=== PATIENT | male | born 1980 | race Two or more races ===

== ENCOUNTER 2019-05-19 01:12 | Emergency (ER) | payer OTHER ==
[~2019-05-19] VITALS: Ht 170.2 cm; Wt 119.3 kg
--- NOTE | 2019-05-19 01:50 | NUR ---
PT BIBS. C/O "L L Q ABD PAIN RADIATING TO LEFT TESTICLE, +N/V. -HEMATURIA. -CONSTIPATION. -DYSURIA" AOX4. VSS. AMBULATORY. PT ON ON MONITOR IN BED 10. WILL CONTINUE TO MONITOR.
[2019-05-19] MEDS ORDERED: MORPHINE SULFATE INJ 2 MG/ML DISP.SYRIN IV ONE (02:00)
[2019-05-19] MEDS ORDERED: IV NS 0.9% 1,000 ML BAG IV ONE (02:00)
[2019-05-19] MEDS ORDERED: ONDANSETRON HCL/PF 4 MG/2 ML VIAL IVP ONE (02:00)
--- NOTE | 2019-05-19 02:00 | NUR ---
ADDENDUM: Intravenous End Time Documentation: Normal saline 1 liter (IV-WO) : start time: 0200 ; end time: 0300: IV site: RAC # 18 Port # 1 Rocephin 1 gram IVPB: start time: 0406 ; end time: 0436 IV site: RAC # 18 Port # 1
[2019-05-19] MEDS ORDERED: ONDANSETRON HCL/PF 4 MG/2 ML VIAL ONE (02:04)
--- NOTE | 2019-05-19 02:04 | NUR ---
BLOOD DRAWN AND GIVEN TO PHLEB
[2019-05-19] MEDS ORDERED: MORPHINE SULFATE INJ 4 MG/ML DISP.SYRIN ONE (02:05)
--- NOTE | 2019-05-19 02:10 | NUR ---
PT TAKEN TO RADIOLOGY VIA [facility]
--- NOTE | 2019-05-19 02:17 | NUR ---
[place] [facility] [place]
[2019-05-19 02:25] LABS: BASOPHILS % (AUTO) 0.4 % (0.0-2.0); EOSINOPHILS % (AUTO) 1.6 % (0.0-6.0); HEMATOCRIT 43 % (39-51); HEMOGLOBIN 14.2 g/dL (13.5-17.5); LYMPHOCYTES # (AUTO) 2.5 /CMM (0.8-4.8); MEAN CORPUSCULAR HGB CONC 33 g/dl (31.0-36.0); MEAN CORPUSCULAR VOLUME 87 fL (80-96); MONOCYTES # (AUTO) 0.5 /CMM (0.1-1.30); MONOCYTES % (AUTO) 5.7 % (2.0-12.0); NEUTROPHILS # (AUTO) 6.1 /CMM (1.8-8.9); NEUTROPHILS % (AUTO) 65.3 % (43.0-81.0); PLATELET COUNT (AUTO) 306 /CMM (150-450); RED BLOOD CELL COUNT(AUTO) 4.98 MIL/uL (4.5-6.0); WHITE BLOOD COUNT (AUTO) 9.3 K/uL (4.3-11.0)
[2019-05-19 02:25] LABS: APPEARANCE,URINE CLEAR (CLEAR); BILIRUBIN,URINE NEGATIVE (NEGATIVE); BLOOD, URINE NEGATIVE Ery/uL (NEGATIVE); COLOR,URINE YELLOW (YELLOW); KETONES,URINE TRACE (NEGATIVE); LEUKOCYTE ESTERASE ,URINE NEGATIVE (NEGATIVE); NITRITE, URINE NEGATIVE (NEGATIVE); PROTEIN,URINE 30 mg/dl (NEGATIVE); UGLUCOSE NEGATIVE (NEGATIVE); UROBILINOGEN,URINE 0.2 EU/dL (0.2)
[2019-05-19] MEDS ORDERED: KETOROLAC TROMETHAMINE INJ 30 MG/ML VIAL ONE (02:29)
[2019-05-19] MEDS ORDERED: KETOROLAC TROMETHAMINE INJ 30 MG/ML VIAL IV ONE (02:30)
[2019-05-19 02:39] LABS: BACTERIA,URINE Few /HPF (None Seen); SQUAMOUS EPITHELIAL CELL,UR Rare /HPF (None Seen); WBC,URINE 21-50 /HPF (0-3)
[2019-05-19 02:40] LABS: CALCIUM, SERUM 9.3 mg/dL (8.5-10.1); CREATININE 1.1 mg/dL (0.6-1.3); POTASSIUM 3.6 mmol/L (3.5-5.1)
[2019-05-19] MEDS ORDERED: HYDROMORPHONE 1 MG/1 ML DISP.SYRIN ONE (02:47)
[2019-05-19] MEDS ORDERED: HYDROMORPHONE 1 MG/1 ML DISP.SYRIN IV ONE (03:00)
[2019-05-19 03:46] VITALS: BP 149/96
--- NOTE | 2019-05-19 03:46 | NUR ---
Patient is resting comfortably in bed with eyes closed. Easily aroused. VSS.
[2019-05-19] MEDS ORDERED: CEFTRIAXONE 1 G in IV D5W 50 ML IV ONE (04:00)
[2019-05-19] MEDS ORDERED: CEFTRIAXONE 1GM BAG (ER ONLY) 50 ML IV ONE (04:06)
--- NOTE | 2019-05-19 05:06 | NUR ---
IV removed. Catheter intact and site benign. Pressure and 4x4 applied to site. No bleeding noted.Patient discharged to home in stable condition. Written and verbal after care instructions given. Patient verbalizes understanding of instruction.
== END 2019-05-19 05:07 | disposition home or self-care (01) ==
LOC: ER 01:12
DX: N20.0 Calculus of kidney (principal); R11.2 Nausea with vomiting, unspecified
CPT/HCPCS: 36415; 74176; 80048; 81001; 85025; 87086; 96361; 96365; 96375; 99284; J0696; J1170; J1885; J2270; J2405; J7030; J7060; 81000-TC

== ENCOUNTER 2019-09-23 03:04 | Emergency (ER) | payer OTHER ==
[~2019-09-23] VITALS: Ht 170.2 cm; Wt 113.4 kg
--- NOTE | 2019-09-23 03:16 | NUR ---
PT AAOX4. AMBULATORY WITH STEADY GAIT. BIBSELF C/O R FLANK PAIN X3 DAYS. -N/V. PLACED ON MONITOR AND PULSE OX. VSS. AWAITING MD FOR EVAL. WILL CONTINUE TO MONITOR.
--- NOTE | 2019-09-23 03:17 | NUR ---
AT BEDSIDE FOR EVAL
[2019-09-23] MEDS ORDERED: KETOROLAC TROMETHAMINE INJ 30 MG/ML VIAL ONE (03:22)
[2019-09-23] MEDS ORDERED: ONDANSETRON HCL/PF 4 MG/2 ML VIAL ONE (03:22)
--- NOTE | 2019-09-23 03:25 | NUR ---
[employer]USTRI[employer]ITY ANALYST AT BEDSIDE FOR URINE AND LABS
[2019-09-23] MEDS ORDERED: IV NS 0.9% 1,000 ML BAG IV ONE (03:30)
[2019-09-23] MEDS ORDERED: ONDANSETRON HCL/PF 4 MG/2 ML VIAL IVP ONE (03:30)
[2019-09-23] MEDS ORDERED: KETOROLAC TROMETHAMINE INJ 30 MG/ML VIAL IV ONE (03:30)
[2019-09-23 03:38] LABS: APPEARANCE,URINE Clear (CLEAR); BILIRUBIN,URINE Negative (NEGATIVE); BLOOD, URINE Negative Ery/uL (NEGATIVE); COLOR,URINE Yellow (YELLOW); KETONES,URINE Negative (NEGATIVE); LEUKOCYTE ESTERASE ,URINE Negative (NEGATIVE); NITRITE, URINE Negative (NEGATIVE); PROTEIN,URINE Negative (NEGATIVE); UGLUCOSE Negative (NEGATIVE); UROBILINOGEN,URINE 0.2 EU/dL (0.2)
[2019-09-23 03:44] LABS: BASOPHILS # (AUTO) 0.1 /CMM (0.0-0.2); BASOPHILS % (AUTO) 0.6 % (0.0-2.0); EOSINOPHILS % (AUTO) 2.1 % (0.0-6.0); HEMATOCRIT 40 % (39-51); HEMOGLOBIN 13.7 g/dL (13.5-17.5); LYMPHOCYTES # (AUTO) 2.3 /CMM (0.8-4.8); LYMPHOCYTES % (AUTO) 24.1 % (20.0-44.0); MEAN CORPUSCULAR HGB CONC 34 g/dl (31.0-36.0); MEAN CORPUSCULAR VOLUME 85 fL (80-96); MONOCYTES % (AUTO) 10.2 % (2.0-12.0); NEUTROPHILS # (AUTO) 5.9 /CMM (1.8-8.9); PLATELET COUNT (AUTO) 295 /CMM (150-450); RED BLOOD CELL COUNT(AUTO) 4.75 MIL/uL (4.5-6.0); WHITE BLOOD COUNT (AUTO) 9.4 K/uL (4.3-11.0)
--- NOTE | 2019-09-23 03:44 | NUR ---
PATIENT TAKEN TO CT.
[2019-09-23 03:46] LABS: CALCIUM, SERUM 9.5 mg/dL (8.5-10.1); CREATININE 1.3 mg/dL (0.6-1.3); POTASSIUM 3.8 mmol/L (3.5-5.1)
[2019-09-23 03:51] LABS: ALBUMIN 4.1 g/dL (3.4-5.0); BILIRUBIN,DIRECT 0.1 mg/dL (0.0-0.2); BILIRUBIN,TOTAL 0.3 mg/dL (0.2-1.0); TOTAL PROTEIN, SERUM 8.1 g/dL (6.4-8.2)
[2019-09-23 04:55] VITALS: BP 142/74
== END 2019-09-23 04:55 | disposition home or self-care (01) ==
LOC: ER 03:04
DX: N20.0 Calculus of kidney (principal)
CPT/HCPCS: 36415; 74176; 80048; 80076; 81001; 83690; 85025; 85730; 96374; 96375; 99284; J1885; J2405; J7030; 81000-TC

== ENCOUNTER 2020-01-16 20:23 | Emergency (ER) | payer OTHER ==
[~2020-01-16] VITALS: Ht 170.2 cm; Wt 111.1 kg
--- NOTE | 2020-01-16 20:25 | NUR ---
PT AAOX4. BIBSELF C/O BURNING UPON URINATION.
--- NOTE | 2020-01-16 20:34 | NUR ---
URINE COLLECTED AND SENT TO LAB
[2020-01-16 21:03] LABS: APPEARANCE,URINE Clear (CLEAR); BILIRUBIN,URINE Negative (NEGATIVE); BLOOD, URINE Negative Ery/uL (NEGATIVE); COLOR,URINE Yellow (YELLOW); KETONES,URINE Negative (NEGATIVE); LEUKOCYTE ESTERASE ,URINE Negative (NEGATIVE); NITRITE, URINE Negative (NEGATIVE); PROTEIN,URINE 30 mg/dl (NEGATIVE); UGLUCOSE Negative (NEGATIVE); UROBILINOGEN,URINE 0.2 EU/dL (0.2)
[2020-01-16 21:16] LABS: BACTERIA,URINE None seen /HPF (None Seen); RBC,URINE 0-2 /HPF (0-2); SQUAMOUS EPITHELIAL CELL,UR Few /HPF (None Seen); WBC,URINE 0-2 /HPF (0-3)
[2020-01-16] MEDS ORDERED: CEFTRIAXONE 500 MG VIAL ONE (21:30)
[2020-01-16] MEDS ORDERED: CEFTRIAXONE 500 MG VIAL IM ONE (21:30)
[2020-01-16] MEDS ORDERED: AZITHROMYCIN 250 MG TABLET ONE (21:30)
[2020-01-16] MEDS ORDERED: AZITHROMYCIN 250 MG TABLET PO ONE (21:30)
[2020-01-16] MEDS ORDERED: LIDOCAINE /MPF 1% VIAL 5 ML VIAL ONE (21:32)
[2020-01-16 21:45] VITALS: BP 154/79
--- NOTE | 2020-01-16 21:45 | NUR ---
Patient discharged to home in stable condition. Written and verbal after care instructions given. Patient verbalizes understanding of instruction and RX. Pt ambulated with steady gait. vss.
== END 2020-01-16 21:45 | disposition home or self-care (01) ==
LOC: ER 20:25
DX: R30.0 Dysuria (principal); Z87.442 Personal history of urinary calculi
CPT/HCPCS: 81001; 87491; 87591; 96372; 99283; J0696; J3490; 81000-TC